=== PATIENT | female | born 1970 | race Caucasian/White ===

== ENCOUNTER 2020-09-11 07:56 | Emergency (ER) | payer SELFPAY ==
[~2020-09-11] VITALS: Ht 157.5 cm; Wt 49.9 kg
[2020-09-11 07:56] VITALS: BP 128/66
--- NOTE | 2020-09-11 07:56 | NUR ---
Patient BIBA BLS on 5150 hold, transferred to bed 5. RN evaluating the patient at bedside.
--- NOTE | 2020-09-11 07:57 | NUR ---
Dr. Barkley is evaluating the patient at bedside.
[2020-09-11] MEDS ORDERED: HALOPERIDOL IM 5 MG/ML VIAL IM SCH (08:00)
[2020-09-11] MEDS ORDERED: NACL 0.9% 2,000 ML IV ONE ×2 (08:00→08:35)
--- NOTE | 2020-09-11 08:00 | NUR ---
Vernon hodge in [facility] - 09/11/20 at 0829 by DAKOTA Patient assisted from ambulance gurney onto hospital bed. 8257 precautions initiated.
[2020-09-11] MEDS ORDERED: HALOPERIDOL IM 5 MG/ML VIAL ONE (08:08)
--- NOTE | 2020-09-11 08:12 | NUR ---
EMT at bedside for EKG
--- NOTE | 2020-09-11 08:12 | NUR ---
Lab at bedside
--- NOTE | 2020-09-11 08:13 | NUR ---
Haldol 5mg administered IM to right deltoid.
--- NOTE | 2020-09-11 08:28 | NUR ---
xray at bedside
[2020-09-11 08:32] LABS: HEMATOCRIT 35.5 % (36-48); HEMOGLOBIN 11.6 g/dL (12.0-16.0); MEAN CORPUSCULAR HEMOGLOBIN 26 pg (27-31); MEAN CORPUSCULAR HGB CONC 33 g/dL (33-37); MEAN CORPUSCULAR VOLUME 80.3 fL (80-94); PLATELET COUNT (AUTO) 320 K/uL (140-450); RED BLOOD CELL COUNT(AUTO) 4.42 MIL/uL (4.20-5.40); RED CELL DISTRIBUTION WIDTH 17.7 % (11.6-13.7); WHITE BLOOD COUNT (AUTO) 16.1 K/uL (4.8-10.8)
--- NOTE | 2020-09-11 08:33 | NUR ---
Patient unable to void at this time. Dr. Barkley made aware.
[2020-09-11 08:38] LABS: ACETAMINOPHEN < 0.5 ug/ml (10-30); ALBUMIN 3.9 g/dL (3.4-5.0); ANION GAP 14.5 (8-16); ASPARTATE AMINOTRANSFERASE 27 U/L (15-37); CHLORIDE 102 mmol/L (98-107); CREATININE 0.7 mg/dL (0.6-1.3); GFR ARICAN-AMERICAN 115 mL/min (>90); GLUCOSE 117 mg/dL (74-106); POTASSIUM 3.5 mmol/L (3.5-5.1); SALICYLATE 2.8 mg/dL (2.8-20.0); SODIUM SERUM 137 mmol/L (136-145); TOTAL BILIRUBIN 0.8 mg/dL (0.0-1.0); UREA NITROGEN, BLOOD 24 mg/dL (7-18)
--- NOTE | 2020-09-11 08:46 | NUR ---
Patient taken to CT by
[2020-09-11 08:48] LABS: LYMPHOCYTES % (MANUAL) 5 % (20-46)
--- NOTE | 2020-09-11 08:55 | NUR ---
Patient back from CT. Patient sleeping in bed, respirations even and unlabored. Bed in the lowest position, side rails up x2.
[2020-09-11 09:00] LABS: CKMB RELATIVE INDEX 2.3 (0.0-2.5); CREATINE KINASE MB 7.1 ng/mL (0-3.6)
--- NOTE | 2020-09-11 09:10 | NUR ---
Kavya and novel covid swabs collected
--- NOTE | 2020-09-11 10:20 | NUR ---
Patient sleeping in bed, respirations even and unlabored. Bed in the lowest position, side rails up x2.
--- NOTE | 2020-09-11 11:20 | NUR ---
Patient resting in bed, respirations even and unlabored. Bed locked, in the lowest position and side rails up.
--- NOTE | 2020-09-11 12:32 | NUR ---
Patient ambulated to bathroom with steady gait; urine specimen collected.
[2020-09-11 13:28] LABS: APPEARANCE,URINE CLEAR (CLEAR); BILIRUBIN,URINE NEGATIVE (NEGATIVE); BLOOD, URINE TRACE-I (NEGATIVE); COLOR,URINE YELLOW (YELLOW); LEUKOCYTE ESTERASE ,URINE NEGATIVE (NEGATIVE); NITRITE, URINE NEGATIVE (NEGATIVE); PH,URINE 5.5 (5.0-9.0); UGLUCOSE NEGATIVE (NEGATIVE)
[2020-09-11 13:37] LABS: BARBITURATE, URINE NEGATIVE ng/ml (NEG <=200); BENZODIAZEPINE, URINE NEGATIVE ng/mL (NEG <=200); CANNABINOID, URINE NEGATIVE ng/mL (NEG <=50); COCAINE, URINE NEGATIVE ng/mL (NEG <=300); OPIATE, URINE NEGATIVE ng/mL (NEG <=2000); PHENCYCLIDINE SCREEN,URINE NEGATIVE ng/mL (NEG <=25)
--- NOTE | 2020-09-11 13:55 | NUR ---
Patient resting in bed, respirations even and unlabored. Bed is in the lowest position and side rails up.
--- NOTE | 2020-09-11 14:43 | NUR ---
Patient ambulated to the restroom with a steady gait and voided x1. Patient ambulated back to bed with steady gait. Bed in the lowest position, locked and side rails up.
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
--- NOTE | 2020-09-11 14:55 | NUR ---
Patient became agitated, speaking incoherently, rambling and walked towards the door. Attempted to redirect patient but patient was not responsive to redirection. Patient was posturing and yelling, "I am not a test tube!!". Patient taken back to her room and notified Dr. Barkley of patient's behavior.
[2020-09-11] MEDS ORDERED: MIDAZOLAM 2 MG/2 ML VIAL ONE (14:57)
[2020-09-11] MEDS ORDERED: MIDAZOLAM 2 MG/2 ML VIAL IM ONE (15:00)
[2020-09-11] MEDS ORDERED: HALOPERIDOL IM 5 MG/ML VIAL IM ONE (15:40)
--- NOTE | 2020-09-11 16:26 | NUR ---
RESTRAINTS DISCONTINUED FROM EACH LIMB.
--- NOTE | 2020-09-11 18:38 | NUR ---
Patient eating dinner.
--- NOTE | 2020-09-11 19:09 | NUR ---
Report given to PATRICE Temple.
--- NOTE | 2020-09-11 19:09 | NUR ---
REPORT RECEIVED FROM PATRICE BATES FOR CONTINUATION OF CARE.
--- NOTE | 2020-09-11 19:30 | NUR ---
PT SITTING IN BED, LOCKED AND IN LOWEST POSITION, HOB ELEVATED, SIDE RAIL X 2 . NO ACUTE DISTRESS NOTED. WATER PROVIDED TO PT FOR COMFORT. SI PRECAUTIONS IN PLACE. 1:1 AT BEDSIDE.
--- NOTE | 2020-09-11 21:15 | NUR ---
Pt ambulated to restroom w/ steady gait. SI precautions in place.
--- NOTE | 2020-09-11 22:04 | NUR ---
Pt sleeping in bed, visible rise and fall of chest. Bed is locked and in lowest position, HOB elevated, side rail x 2 for pt safety. SI precautions in place. No acute distress noted.
--- NOTE | 2020-09-11 23:22 | NUR ---
PT SITTING UP IN BED, REQUESTING SOMETHING TO EAT. PT PROVIDED W/ PUDDING AND CRACKERS. SI PRECAUTIONS IN PLACE. VSS.
--- NOTE | 2020-09-11 23:27 | NUR ---
Patient intake has been faxed out to [facility]. Patient is unfunded at this time of documentation.
--- NOTE | 2020-09-12 02:14 | NUR ---
PT AMBULATED TO RESTROOM W/ STEADY GAIT.
--- NOTE | 2020-09-12 04:51 | NUR ---
Pt sleeping in room, visible rise and fall of chest. RR even and unlabored. VSS. SI precautions in place w/ sitter at bedside.. No acute distress noted.
--- NOTE | 2020-09-12 07:10 | NUR ---
REPORT GIVEN TO PATRICE PAYNE FOR TRANSFER OF CARE.
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
--- NOTE | 2020-09-12 08:30 | NUR ---
currently asleep. breakfast tray at bedside. no acute distress at this time. sitter at bedside.
--- NOTE | 2020-09-12 09:32 | NUR ---
Dr. Quinn with pt for mental health assessment.
--- NOTE | 2020-09-12 09:36 | NUR ---
ambulated to restroom for voiding. sitter at door
--- NOTE | 2020-09-12 09:39 | NUR ---
Dr. Adamsrees at bedside and released patient from hold. Pt cleared to be discharged. Dr. Barkley made aware.
--- NOTE | 2020-09-12 10:19 | NUR ---
pt d/c with VSS. [address] Quinn[address] pt provided with homeless packet, homeless meal and resources for homeless alf. opportunty to ask questions given and answered.
[2020-09-12 10:21] VITALS: BP 125/61
--- NOTE | 2020-09-13 20:01 | NUR ---
LATE ENTRY- NORMAL SALINE 0.9% DISCONTINUED AT 1000
== END 2020-09-12 10:19 | disposition home or self-care (01) ==
LOC: MED 07:56
DX: R45.851 Suicidal ideations (principal); R45.1 Restlessness and agitation; Z20.822 Contact with and (suspected) exposure to COVID-19
CPT/HCPCS: 36415; 70450; 71045; 80053; 80305; 81003; 81025; 82550; 82553; 84484; 84702; 85025; 87426; 93005; 96360; 96372; 99285; G0480; G0482; J1630; J2250; J7030; U0003

== ENCOUNTER 2020-10-28 23:37 | Emergency (ER) | payer MEDICAID, OTHER ==
[~2020-10-28] VITALS: Ht 154.9 cm; Wt 49.0 kg
[2020-10-28] MEDS ORDERED: OLANZapine 10 MG VIAL IM ONE ×2 (23:44→23:50)
[2020-10-28] MEDS ORDERED: LORazepam 2 MG/ML VIAL IVP ONE (23:50)
--- NOTE | 2020-10-28 23:53 | NUR ---
PT RICARDO ALS. TAKEN TO BED 5
[2020-10-29] MEDS ORDERED: NACL 0.9% 2,000 ML IV ONE
--- NOTE | 2020-10-29 | NUR ---
RICARDO FROM [address] FOR ALTERED MENTAL STATUS. HYPERVERBAL AND UNWILLING TO ANSWER QUESTIONS DIRECTLY. HEART RATE INCREASED BUT PT DOES NOT SHOW SIGNS OF CHEST DISCOMFORT. PATIENT AGITATED. MEDHX- UNOBTAINABLE ALLX- UNOBTAINABLE
--- NOTE | 2020-10-29 01:00 | NUR ---
Patient appears to be resting comfortably in bed. Vital Signs within normal limits. Respirations even and unlabored. no acute distress noted.
--- NOTE | 2020-10-29 02:33 | NUR ---
Patient appears to be resting comfortably in bed. Vital Signs within normal limits. Respirations even and unlabored. no acute distress noted.
--- NOTE | 2020-10-29 03:42 | NUR ---
Patient appears to be resting comfortably in bed. Vital Signs within normal limits. Respirations even and unlabored. no acute distress noted at this time
--- NOTE | 2020-10-29 04:53 | NUR ---
Patient appears to be resting comfortably in bed. Vital Signs within normal limits. Respirations even and unlabored.
--- NOTE | 2020-10-29 06:20 | NUR ---
ERMD attempted to awaken patient to receive proper examination but patient continued on sleeping. no signs of acute distress for patient.
--- NOTE | 2020-10-29 07:03 | NUR ---
Note undone in EDM - 10/29/20 at 0712 by [email or web address] Patient discharged with v/s stable. Pt states pain feels controlled; pain at a 3/10. Written and verbal after care instructions given and explained. Patient alert, oriented and verbalized understanding of instructions. Ambulatory with steady gait. All questions addressed prior to discharge. ID band removed. Patient advised to follow up with PMD. Rx of NAPROXEN, MACROBID 100MG CAP, & PYRIDIUM given. Patient educated on indication of medication including possible reaction and side effects. Opportunity to ask questions provided and answered.
--- NOTE | 2020-10-29 07:11 | NUR ---
Received report from Nabor Walden. Transfer of care at this time.
--- NOTE | 2020-10-29 08:26 | NUR ---
Pt changed into clean clothes, sheets changed. Gave breakfast tray pt sitting up calm and cooperative. Will continue to monitor.
--- NOTE | 2020-10-29 08:45 | NUR ---
Pt sleeping on left side, visible equal rise and fall of chest. Will continue to monitor.
[2020-10-29 10:52] VITALS: BP 105/70
--- NOTE | 2020-10-29 10:52 | NUR ---
Patient discharged with v/s stable. Written and verbal after care instructions given and explained. Patient verbalized understanding. Ambulatory with steady gait. All questions addressed prior to discharge. Advised to follow up with PMD.
== END 2020-10-28 23:59 | disposition home or self-care (01) ==
LOC: MED 23:37
DX: F29 Unspecified psychosis not due to a substance or known physiological condition (principal); R45.1 Restlessness and agitation; F31.9 Bipolar disorder, unspecified
CPT/HCPCS: 96361; 96372; 96374; 99284; J2060; J3490; J7030

== ENCOUNTER 2020-10-29 12:31 | Emergency (ER) | payer MEDICAID ==
[~2020-10-29] VITALS: Ht 152.4 cm; Wt 46.7 kg
[2020-10-29 12:33] VITALS: BP 112/80
[2020-10-29 13:10] LABS: BASOPHILS # (AUTO) 0.1 K/uL (0.00-0.22); BASOPHILS % (AUTO) 0.8 % (0.0-2.0); EOSINOPHILS # (AUTO) 0.7 K/uL (0-0.4); EOSINOPHILS % (AUTO) 8.2 % (0.0-4.0); HEMATOCRIT 33.8 % (36-48); HEMOGLOBIN 11.3 g/dL (12.0-16.0); LYMPHOCYTES # (AUTO) 2.2 K/uL (2.5-16.5); LYMPHOCYTES % (AUTO) 24.7 % (20.5-51.1); MEAN CORPUSCULAR HEMOGLOBIN 27 pg (27-31); MEAN CORPUSCULAR HGB CONC 33 g/dL (33-37); MEAN CORPUSCULAR VOLUME 81.6 fL (80-94); MONOCYTES # (AUTO) 1.1 K/uL (0.8-1.0); MONOCYTES % (AUTO) 12.7 % (1.7-9.3); NEUTROPHILS # (AUTO) 4.8 K/uL (1.8-7.7); NEUTROPHILS % (AUTO) 53.6 % (42.2-75.2); PLATELET COUNT (AUTO) 259 K/uL (140-450); RED BLOOD CELL COUNT(AUTO) 4.14 MIL/uL (4.20-5.40); RED CELL DISTRIBUTION WIDTH 17.4 % (11.6-13.7); WHITE BLOOD COUNT (AUTO) 8.9 K/uL (4.8-10.8)
[2020-10-29 13:25] LABS: ALBUMIN 3.1 g/dL (3.4-5.0); ANION GAP 12.7 (8-16); ASPARTATE AMINOTRANSFERASE 17 U/L (15-37); CARBON DIOXIDE 24.2 mmol/L (21-32); CHLORIDE 106 mmol/L (98-107); CREATININE 0.6 mg/dL (0.6-1.3); GFR ARICAN-AMERICAN 137 mL/min (>90); GLUCOSE 91 mg/dL (74-106); POTASSIUM 3.9 mmol/L (3.5-5.1); SODIUM SERUM 139 mmol/L (136-145); TOTAL BILIRUBIN 0.3 mg/dL (0.0-1.0); UREA NITROGEN, BLOOD 19 mg/dL (7-18)
[2020-10-29 13:27] LABS: SALICYLATE < 2.8 mg/dL (2.8-20.0)
[2020-10-29 13:28] LABS: ACETAMINOPHEN < 0.5 ug/ml (10-30)
[2020-10-29 13:42] LABS: BARBITURATE, URINE NEGATIVE ng/ml (NEG <=200); BENZODIAZEPINE, URINE POSITIVE ng/mL (NEG <=200)
[2020-10-29 13:43] LABS: CANNABINOID, URINE POSITIVE ng/mL (NEG <=50); COCAINE, URINE NEGATIVE ng/mL (NEG <=300); OPIATE, URINE NEGATIVE ng/mL (NEG <=2000); PHENCYCLIDINE SCREEN,URINE NEGATIVE ng/mL (NEG <=25)
[2020-10-29] MEDS: OLANZapine 5 MG ODT PO SCH ×2 (21:25→21:26)
[2020-10-30] MEDS ORDERED: OLANZapine 5 MG ODT PO SCH (08:30)
[2020-10-30 08:35] VITALS: BP 123/76
== END 2020-10-30 08:35 | disposition home or self-care (01) ==
LOC: MED 12:31
DX: F32.9 Major depressive disorder, single episode, unspecified (principal); Z20.822 Contact with and (suspected) exposure to COVID-19; R44.3 Hallucinations, unspecified; F19.90 Other psychoactive substance use, unspecified, uncomplicated; Z59.0 Homelessness
CPT/HCPCS: 36415; 80053; 80305; 85025; 87426; 99285; G0480; G0482; U0003

== ENCOUNTER 2020-11-07 14:36 | Emergency (ER) | payer MEDICAID ==
[~2020-11-07] VITALS: Ht 152.4 cm; Wt 40.8 kg
[2020-11-07 14:40] VITALS: BP 128/107
[2020-11-07] MEDS ORDERED: ZIPRASIDONE MESYLATE 20 MG/ML VIAL IM ONE (14:40)
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
--- NOTE | 2020-11-07 15:26 | NUR ---
JOSE MARIA AND NOVEL SWABS COLLECTED, HANDED TO PRAMOD SOTO
--- NOTE | 2020-11-07 15:39 | NUR ---
LAB AT BEDSIDE
[2020-11-07 15:57] LABS: BASOPHILS # (AUTO) 0.1 K/uL (0.00-0.22); BASOPHILS % (AUTO) 0.9 % (0.0-2.0); EOSINOPHILS # (AUTO) 0.4 K/uL (0-0.4); EOSINOPHILS % (AUTO) 4.4 % (0.0-4.0); HEMATOCRIT 36.4 % (36-48); HEMOGLOBIN 12.1 g/dL (12.0-16.0); LYMPHOCYTES # (AUTO) 2.5 K/uL (2.5-16.5); LYMPHOCYTES % (AUTO) 24.9 % (20.5-51.1); MEAN CORPUSCULAR HEMOGLOBIN 27 pg (27-31); MEAN CORPUSCULAR HGB CONC 33 g/dL (33-37); MEAN CORPUSCULAR VOLUME 80.5 fL (80-94); MONOCYTES # (AUTO) 0.7 K/uL (0.8-1.0); MONOCYTES % (AUTO) 6.8 % (1.7-9.3); NEUTROPHILS # (AUTO) 6.3 K/uL (1.8-7.7); PLATELET COUNT (AUTO) 328 K/uL (140-450); RED BLOOD CELL COUNT(AUTO) 4.53 MIL/uL (4.20-5.40); RED CELL DISTRIBUTION WIDTH 16.6 % (11.6-13.7)
[2020-11-07 16:35] LABS: BARBITURATE, URINE NEGATIVE ng/ml (NEG <=200); BENZODIAZEPINE, URINE NEGATIVE ng/mL (NEG <=200); CANNABINOID, URINE NEGATIVE ng/mL (NEG <=50); COCAINE, URINE NEGATIVE ng/mL (NEG <=300); OPIATE, URINE NEGATIVE ng/mL (NEG <=2000); PHENCYCLIDINE SCREEN,URINE NEGATIVE ng/mL (NEG <=25)
--- NOTE | 2020-11-07 17:02 | NUR ---
Patient has eyes closed, resting comfortably in bed. Vital Signs within normal limits. Respirations even and unlabored. Chest rise is symmetrical. Will continue to monitor.
[2020-11-07 18:34] LABS: ANION GAP 15.5 (8-16); CARBON DIOXIDE 24.9 mmol/L (21-32); CHLORIDE 106 mmol/L (98-107); GLUCOSE 111 mg/dL (74-106); POTASSIUM 3.4 mmol/L (3.5-5.1); SODIUM SERUM 143 mmol/L (136-145)
[2020-11-07 18:35] LABS: ACETAMINOPHEN < 0.5 ug/ml (10-30); ALBUMIN 3.8 g/dL (3.4-5.0); ASPARTATE AMINOTRANSFERASE 20 U/L (15-37); CREATININE 0.7 mg/dL (0.6-1.3); GFR ARICAN-AMERICAN 115 mL/min (>90); SALICYLATE 2.9 mg/dL (2.8-20.0); TOTAL BILIRUBIN 0.3 mg/dL (0.0-1.0); UREA NITROGEN, BLOOD 24 mg/dL (7-18)
--- NOTE | 2020-11-07 19:15 | NUR ---
Pt report given to SANTIAGO IBRAHIM. Transfer of care at this time.
--- NOTE | 2020-11-07 19:15 | NUR ---
REPORT RECIEVED FROM PATRICE JANE FOR CONTINUITY OF CARE.
--- NOTE | 2020-11-07 19:20 | NUR ---
Patient appears to be resting comfortably in bed. Vital Signs within normal limits. Respirations even and unlabored. NO NOTED DISTRESS AT THIS TIME.
[2020-11-07 19:51] LABS: APPEARANCE,URINE CLEAR (CLEAR); BILIRUBIN,URINE NEGATIVE (NEGATIVE); BLOOD, URINE NEGATIVE (NEGATIVE); COLOR,URINE YELLOW (YELLOW); LEUKOCYTE ESTERASE ,URINE NEGATIVE (NEGATIVE); NITRITE, URINE NEGATIVE (NEGATIVE); PH,URINE 5.5 (5.0-9.0); UGLUCOSE NEGATIVE (NEGATIVE)
--- NOTE | 2020-11-07 21:25 | NUR ---
SPOKE WITH LEONCIO AT [facility]. SHE STATES SHE WILL BE GETTING AUTHORIZATION.
--- NOTE | 2020-11-07 21:30 | NUR ---
Patient appears to be resting comfortably in bed. Vital Signs within normal limits. Respirations even and unlabored. NO DISTRESS OR PAIN NOTED AT THIS TIME.
--- NOTE | 2020-11-07 22:06 | NUR ---
SPOKE WITH LEONCIO AT [facility]. REPORTS PT IS BEING ADMITTED AND WILL CALL BACK WITH ADMITTING DOCTOR.
--- NOTE | 2020-11-07 22:10 | NUR ---
PER LEONCIO AT [facility], [facility] WILL BE ACCEPTING PT. Addendum: 11/07/20 at 2218 by [email or web address] LEONCIO PHONE #: [phone]
--- NOTE | 2020-11-07 22:10 | NUR ---
Patient to be transferred to [facility]. Is being transferred due to NEED FOR OTHER SERVICES NOT PROVIDED BY OUR FACILITY. Receiving facility has accepting physician and available space. ER physician has signed transfer form. Patient belongings inventoried and will be sent with patient. Copy of nursing notes, lab reports, EKG, Physicians Orders and X-rays to be sent with patient. Report called to LEONCIO at receiving facility. [facility] ambulance service has been called for transfer. ETA is 2 HOURS.
--- NOTE | 2020-11-07 22:30 | NUR ---
PT TRANSPORTATION ETA 2 HOURS.
--- NOTE | 2020-11-07 23:05 | NUR ---
[facility] AT BEDSIDE
[2020-11-07 23:13] VITALS: BP 121/72
--- NOTE | 2020-11-07 23:13 | NUR ---
PT TAKEN BY EMILIO TO [facility]
== END 2020-11-07 23:13 ==
LOC: MED 14:36
DX: R41.82 Altered mental status, unspecified (principal); Z20.822 Contact with and (suspected) exposure to COVID-19; F15.10 Other stimulant abuse, uncomplicated; F29 Unspecified psychosis not due to a substance or known physiological condition; R45.851 Suicidal ideations
CPT/HCPCS: 36415; 80053; 80305; 81003; 81025; 84484; 85025; 87426; 96372; 99285; G0480; G0482; J3486; U0003; 99283

== ENCOUNTER 2020-12-10 16:34 | Emergency (ER) | payer MEDICAID ==
[~2020-12-10] VITALS: Ht 154.9 cm; Wt 52.6 kg
[2020-12-10 16:47] VITALS: BP 134/95
--- NOTE | 2020-12-10 16:50 | NUR ---
PT ASKED TO WAIT IN LOBBY.
--- NOTE | 2020-12-10 17:37 | NUR ---
PT CALLED IN LOBBY, NO RESPONSE.
--- NOTE | 2020-12-10 17:53 | NUR ---
ANOTHER ATTEMPT TO CALL PT BACK. NO RESPONSE.
--- NOTE | 2020-12-10 17:53 | NUR ---
PATIENT LEFT WITHOUT BEING SEEN BY DR. JUSTIN. NO FURTHER CARE PROVIDED FOR PATIENT.
== END 2020-12-10 17:53 | disposition left against medical advice (07) ==
LOC: MED 16:34
DX: R06.00 Dyspnea, unspecified (principal); R05 Cough

== ENCOUNTER 2020-12-14 18:30 | Emergency (ER) | payer MEDICAID ==
[~2020-12-14] VITALS: Ht 162.6 cm; Wt 59.0 kg
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
[2020-12-14 18:39] VITALS: BP 138/77
[2020-12-14] MEDS ORDERED: ALBU0.0912 INH (18:40)
[2020-12-14] MEDS ORDERED: ALBUTEROL HFA MDI 90 MCG/ACTUATION 8 GM INH ONE (18:40)
--- NOTE | 2020-12-14 18:45 | NUR ---
RT AT BEDSIDE WITH ALBUTEROL TREATMENT
[2020-12-14 19:20] VITALS: BP 138/77
--- NOTE | 2020-12-14 19:20 | NUR ---
Patient discharged with v/s stable. Written and verbal after care instructions about shortness of breathe given and explained. Patient alert, oriented and verbalized understanding of instructions. Ambulatory with steady gait. All questions addressed prior to discharge. ID band removed. Patient advised to follow up with PMD. Rx of albuterol sulfate given. Patient educated on indication of medication including possible reaction and side effects. Opportunity to ask questions provided and answered.
== END 2020-12-14 19:20 | disposition home or self-care (01) ==
LOC: MED 18:30
DX: R06.02 Shortness of breath (principal); F15.10 Other stimulant abuse, uncomplicated; J44.9 Chronic obstructive pulmonary disease, unspecified; F17.290 Nicotine dependence, other tobacco product, uncomplicated; Z76.0 Encounter for issue of repeat prescription
CPT/HCPCS: 94664; 99283

== ENCOUNTER 2021-01-16 19:23 | Emergency (ER) | payer MEDICAID ==
[~2021-01-16] VITALS: Ht 152.4 cm; Wt 59.0 kg
[2021-01-16 19:23] VITALS: BP 121/89
[~2021-01-16 19:23] MED LIST: ALBU0.0912 INH
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
--- NOTE | 2021-01-16 19:30 | NUR ---
Dr. Sneed examining patient.
[2021-01-16] MEDS ORDERED: LORazepam 2 MG/ML VIAL IM ONE (19:35)
[2021-01-16] MEDS ORDERED: HALOPERIDOL IM 5 MG/ML VIAL IM ONE (19:35)
[2021-01-16] MEDS ORDERED: NACL 0.9% 1,000 ML IV ONE (19:40)
--- NOTE | 2021-01-16 21:50 | NUR ---
LAB AT BEDSIDE
[2021-01-16 22:20] LABS: BASOPHILS % (AUTO) 0.5 % (0.0-2.0); EOSINOPHILS # (AUTO) 0.2 K/uL (0-0.4); EOSINOPHILS % (AUTO) 1.9 % (0.0-4.0); LYMPHOCYTES # (AUTO) 1.1 K/uL (2.5-16.5); LYMPHOCYTES % (AUTO) 14.2 % (20.5-51.1); MEAN CORPUSCULAR HEMOGLOBIN 28 pg (27-31); MEAN CORPUSCULAR HGB CONC 33 g/dL (33-37); MEAN CORPUSCULAR VOLUME 82.5 fL (80-94); MONOCYTES # (AUTO) 0.9 K/uL (0.8-1.0); MONOCYTES % (AUTO) 11.6 % (1.7-9.3); NEUTROPHILS # (AUTO) 5.8 K/uL (1.8-7.7); NEUTROPHILS % (AUTO) 71.8 % (42.2-75.2); PLATELET COUNT (AUTO) 236 K/uL (140-450); RED BLOOD CELL COUNT(AUTO) 4.37 MIL/uL (4.20-5.40); RED CELL DISTRIBUTION WIDTH 16.7 % (11.6-13.7)
[2021-01-16 23:08] LABS: ALBUMIN 3.8 g/dL (3.4-5.0); ANION GAP 15.5 (8-16); ASPARTATE AMINOTRANSFERASE 20 U/L (15-37); CARBON DIOXIDE 24.5 mmol/L (21-32); CHLORIDE 109 mmol/L (98-107); GFR ARICAN-AMERICAN 76 mL/min (>90); GLUCOSE 109 mg/dL (74-106); SALICYLATE 4.9 mg/dL (2.8-20.0); SODIUM SERUM 146 mmol/L (136-145); TOTAL BILIRUBIN 0.3 mg/dL (0.0-1.0); UREA NITROGEN, BLOOD 22 mg/dL (7-18)
--- NOTE | 2021-01-17 00:45 | NUR ---
PT. LAYING IN POSITION RESTING WITH EYES CLOSED, VOICES NO COMPLAINTS.
--- NOTE | 2021-01-17 01:30 | NUR ---
DELAY IN URINE COLLECTION, PT. UNABLE TO GIVE AT THIS TIME. PT. LAYING IN POSITION RESTING WITH EYES CLOSED.
--- NOTE | 2021-01-17 03:45 | NUR ---
PT. LAYING IN POSITION WITH EYES CLOSED. AUDIBLE SNORING SOUNDS CAN BE HEARD.
--- NOTE | 2021-01-17 07:24 | NUR ---
[facility]on hodge in [facility] - 01/17/21 at 0723 by LIS REPORT RECEIVED FROM SIMON IBRAHIM, TRANSFER OF CARE AT THIS TIME
--- NOTE | 2021-01-17 07:25 | NUR ---
REPORT GIVEN TO PATRICE LUNA. TRANSFER OF CARE AT THIS TIME.
--- NOTE | 2021-01-17 07:25 | NUR ---
REPORT RECEIVED FROM SIMON RN, TRANSFER OF CARE AT THIS TIME
--- NOTE | 2021-01-17 07:44 | NUR ---
PT RESTING WITH EYES CLOSED, BREATHING EVEN AND UNLABORED. NO DISTRESS NOTED.
[2021-01-17 09:05] LABS: BARBITURATE, URINE NEGATIVE ng/ml (NEG <=200); BENZODIAZEPINE, URINE POSITIVE ng/mL (NEG <=200); CANNABINOID, URINE NEGATIVE ng/mL (NEG <=50); COCAINE, URINE NEGATIVE ng/mL (NEG <=300); OPIATE, URINE NEGATIVE ng/mL (NEG <=2000); PHENCYCLIDINE SCREEN,URINE NEGATIVE ng/mL (NEG <=25)
--- NOTE | 2021-01-17 10:00 | NUR ---
PT ALERT AND AWAKE, BREATHING EVEN AND UNLABORED. PT ATE BREAKFAST TRAY 100%, STATES THAT SHE WANTS HELP WITH SITUATION OF LIVING ON STREETS.
--- NOTE | 2021-01-17 11:09 | NUR ---
PT IS ON PHONE WITH [facility] AT THIS TIME
--- NOTE | 2021-01-17 11:31 | NUR ---
PER MIRIAM FROM [employer] - WILL BE TAKING PT OFF OF HOLD, ANNAMARIE MADE AWARE - RECOMMENDS ALF RESOURCES.
[2021-01-17] MEDS ORDERED: RIS1 PO (12:05)
--- NOTE | 2021-01-17 12:10 | NUR ---
PT GIVEN CHANGE OF CLOTHES/SHOES THAT ARE APPROPRIATE FOR WEATHER AND HAS EATEN LUNCH AT THIS TIME
[2021-01-17 12:20] VITALS: BP 108/89
--- NOTE | 2021-01-17 12:20 | NUR ---
Patient discharged with v/s stable. Written and verbal after care instructions about bipolar 1 disorder given and explained. Patient alert, oriented and verbalized understanding of instructions. Ambulatory with steady gait. All questions addressed prior to discharge. ID band removed. Patient advised to follow up with PMD. Rx of resperidone given. Patient educated on indication of medication including possible reaction and side effects. Opportunity to ask questions provided and answered.
--- NOTE | 2021-01-17 12:20 | NUR ---
Patient given written and verbal discharge instructions and verbalizes understanding. Given copies of tests performed during visit. Patient is awake, alert and oriented. Ambulatory with steady gait. Refuses offer of care home placement. Given list of available shelters in surrounding areas.
--- NOTE | 2021-01-18 19:33 | NUR ---
LATE ENTRY- 0.9% NS IVF DISCONTINUED AT 2150
== END 2021-01-17 12:20 | disposition home or self-care (01) ==
LOC: MED 19:23
DX: F29 Unspecified psychosis not due to a substance or known physiological condition (principal); J44.9 Chronic obstructive pulmonary disease, unspecified; F17.200 Nicotine dependence, unspecified, uncomplicated; F15.90 Other stimulant use, unspecified, uncomplicated; Z79.899 Other long term (current) drug therapy
CPT/HCPCS: 36415; 80053; 80305; 85025; 96360; 96372; 99284; G0480; G0482; J1630; J2060; J7030; 96361

== ENCOUNTER 2021-03-01 22:35 | Emergency (ER) | payer MEDICAID ==
[~2021-03-01 22:35] MED LIST changes: +RIS1 PO
--- NOTE | 2021-03-01 23:00 | NUR ---
PATIENT CALLED FOR TRIAGE. PATIENT NOT IN LOBBY AND OUTSIDE.
--- NOTE | 2021-03-01 23:20 | NUR ---
PATIENT CALLED FOR TRIAGE. PATIENT NOT IN LOBBY AND OUTSIDE.
--- NOTE | 2021-03-01 23:40 | NUR ---
PATIENT CALLED FOR TRIAGE. PATIENT NOT IN LOBBY AND OUTSIDE.
--- NOTE | 2021-03-01 23:45 | NUR ---
PATIENT LEFT WITHOUT BEING SEEN. NO FURTHER CARE PROVIDED FOR PATIENT.
== END 2021-03-01 23:40 | disposition left against medical advice (07) ==
LOC: MED 22:35
DX: Z53.21 Procedure and treatment not carried out due to patient leaving prior to being seen by health care provider (principal)

== ENCOUNTER 2021-03-02 02:10 | Emergency (ER) | payer MEDICAID ==
[~2021-03-02] VITALS: Ht 152.4 cm; Wt 54.4 kg
[2021-03-02 02:54] VITALS: BP 145/76
--- NOTE | 2021-03-02 02:56 | NUR ---
TO [facility] AMBULATORY
--- NOTE | 2021-03-02 03:01 | NUR ---
PATIENT LEFT WITHOUT BEING SEEN BY DR. SABA. NO FURTHER CARE PROVIDED FOR PATIENT.SHE DOESNT WANT TO WAIT FOR THE ERMD
--- NOTE | 2021-03-02 03:03 | NUR ---
PATIENT IN CHAIR B ACTING AGGRESSIVE, YELLING OUT PROFANITIES.
== END 2021-03-02 03:04 | disposition left against medical advice (07) ==
LOC: MED 02:10
DX: H92.03 Otalgia, bilateral (principal); Z53.21 Procedure and treatment not carried out due to patient leaving prior to being seen by health care provider

== ENCOUNTER 2022-03-24 05:20 | Emergency (ER) | payer MEDICAID ==
[~2022-03-24] VITALS: Ht 157.5 cm; Wt 63.5 kg
--- NOTE | 2022-03-24 05:28 | NUR ---
Dr. Chicas examining at [facility].
[2022-03-24 05:29] VITALS: BP 114/102
[2022-03-24] MEDS ORDERED: diphenhydrAMINE 50 MG/ML VIAL IM ONE (05:30)
[2022-03-24] MEDS ORDERED: LORazepam 2 MG/ML VIAL IM ONE (05:30)
[2022-03-24] MEDS ORDERED: HALOPERIDOL IM 5 MG/ML VIAL IM ONE (05:30)
[2022-03-24] MEDS ORDERED: LORazepam 2 MG/ML VIAL IM/IVP STA (05:51)
--- NOTE | 2022-03-24 06:00 | NUR ---
Pt resting in bed, eyes closed, NAD. Restraints removed.
--- NOTE | 2022-03-24 06:07 | NUR ---
PER [facility] CELESTINO STRAIGHT CATH IS NOT NECESSARY FOR URINE COLLECTION.
--- NOTE | 2022-03-24 06:13 | NUR ---
BLOOD COLLECTED AND GIVEN TO LAB.
[2022-03-24 06:35] LABS: BASOPHILS # (AUTO) 0.1 K/uL (0.00-0.22); BASOPHILS % (AUTO) 0.5 % (0.0-2.0); EOSINOPHILS # (AUTO) 0.2 K/uL (0-0.4); HEMATOCRIT 35.3 % (36-48); HEMOGLOBIN 11.5 g/dL (12.0-16.0); LYMPHOCYTES # (AUTO) 2.7 K/uL (2.5-16.5); MEAN CORPUSCULAR HEMOGLOBIN 27 pg (27-31); MEAN CORPUSCULAR HGB CONC 33 g/dL (33-37); MEAN CORPUSCULAR VOLUME 82.7 fL (80-94); MONOCYTES # (AUTO) 0.8 K/uL (0.8-1.0); NEUTROPHILS # (AUTO) 7.8 K/uL (1.8-7.7); NEUTROPHILS % (AUTO) 67.5 % (42.2-75.2); PLATELET COUNT (AUTO) 241 K/uL (140-450); RED BLOOD CELL COUNT(AUTO) 4.26 MIL/uL (4.20-5.40); RED CELL DISTRIBUTION WIDTH 15.1 % (11.6-13.7); WHITE BLOOD COUNT (AUTO) 11.6 K/uL (4.8-10.8)
[2022-03-24 06:53] LABS: ALBUMIN 3.3 g/dL (3.4-5.0); ANION GAP 13.6 (8-16); ASPARTATE AMINOTRANSFERASE 19 U/L (15-37); CARBON DIOXIDE 25.5 mmol/L (21-32); CHLORIDE 103 mmol/L (98-107); CREATININE 0.6 mg/dL (0.6-1.3); GFR ARICAN-AMERICAN 136 mL/min (>90); GLUCOSE 125 mg/dL (74-106); POTASSIUM 3.1 mmol/L (3.5-5.1); SODIUM SERUM 139 mmol/L (136-145); TOTAL BILIRUBIN 0.2 mg/dL (0.0-1.0); UREA NITROGEN, BLOOD 19 mg/dL (7-18)
[2022-03-24 06:56] LABS: ACETAMINOPHEN < 0.5 ug/ml (10-30); SALICYLATE < 2.8 mg/dL (2.8-20.0)
[2022-03-24 07:19] LABS: CKMB RELATIVE INDEX 2.5 (0.0-2.5)
--- NOTE | 2022-03-24 08:42 | NUR ---
Patient appears to be resting comfortably in bed. Vital Signs within normal limits. Respirations even and unlabored.
[2022-03-24 12:42] VITALS: BP 110/92
== END 2022-03-24 12:43 | disposition home or self-care (01) ==
LOC: MED 05:20
DX: F23 Brief psychotic disorder (principal); R45.1 Restlessness and agitation; F15.10 Other stimulant abuse, uncomplicated
CPT/HCPCS: 36415; 71045; 71250; 80053; 82550; 82553; 84484; 85025; 93005; 96372; 99291; G0480; G0482; J1200; J1630; J2060; Q0092

== ENCOUNTER 2022-08-25 08:39 | Emergency (ER) | payer MEDICAID ==
[~2022-08-25] VITALS: Ht 157.5 cm; Wt 54.4 kg
[2022-08-25 08:45] VITALS: BP 152/103
--- NOTE | 2022-08-25 11:02 | NUR ---
PT EATING AYANA CRACKERS AT THIS TIME
--- NOTE | 2022-08-25 12:50 | NUR ---
52 Y/O FEMALE BIBA FROM [employer] C/O "FEELING COLD", PER EMS THE INSTALLATIONS INSPECTOR AT THE [employer] STATED THAT THE PT WAS "UNRESPONSIVE", PER EMS PT IS RESPONSIVE, SCREAMING AT EMS. PT CRYING AND WANTING A BLANKET, SCREAMING IN TRIAGE DURING VS. AMBULATORY. NKA PMH: UNOBTAINABLE, METH USE
[2022-08-25 13:10] VITALS: BP 135/83
--- NOTE | 2022-08-25 13:11 | NUR ---
Patient discharged with v/s stable. Written and verbal after care instructions given and explained. Patient verbalized understanding. Ambulatory with steady gait. All questions addressed prior to discharge. Advised to follow up with PMD. PT GIVEN BAG OF FOOD, REFUSING SERVICES FOR TRANSPORT, SAYING THAT SHE WANTS TO STAY IN THE LOBBY
== END 2022-08-25 13:11 | disposition home or self-care (01) ==
LOC: MED 08:39
DX: F15.10 Other stimulant abuse, uncomplicated (principal); J44.9 Chronic obstructive pulmonary disease, unspecified; Z79.899 Other long term (current) drug therapy
CPT/HCPCS: 99283

== ENCOUNTER 2022-10-18 13:42 | Emergency (ER) | payer MEDICAID ==
[~2022-10-18] VITALS: Ht 157.5 cm; Wt 65.8 kg
[2022-10-18] MEDS ORDERED: HALOPERIDOL IM 5 MG/ML VIAL IM ONE (14:05)
[2022-10-18] MEDS ORDERED: LORazepam 2 MG/ML VIAL IM ONE (14:40)
[2022-10-18] MEDS ORDERED: diphenhydrAMINE 50 MG/ML VIAL IM ONE (14:40)
[2022-10-18 15:00] VITALS: BP 112/72
--- NOTE | 2022-10-18 15:12 | NUR ---
BIBA BLS TO ER BED 10
--- NOTE | 2022-10-18 15:15 | NUR ---
PT. PLACED IN HARD RESTRAINS FOR SAFETY. IS VERY AGITED, YELLING, SCREAMING, OUT OF CONTROL. MD AT BEDSIDE TO EVAL PT. NO SOB, NO RESP. DIFFICULTY ALL MEASURES ATTEMPTED TO CALM PT. DOWN AND HELP HER REGAIN CONTROL. PT. IS YELLING OUT OF CONTROL AND UNABLE TO CONTROL HER BEHAVIOR.
[2022-10-18 16:23] LABS: BASOPHILS # (AUTO) 0.1 K/uL (0.00-0.22); BASOPHILS % (AUTO) 0.6 % (0.0-2.0); EOSINOPHILS % (AUTO) 0.3 % (0.0-4.0); HEMATOCRIT 34.8 % (36-48); HEMOGLOBIN 11.2 g/dL (12.0-16.0); LYMPHOCYTES # (AUTO) 2.4 K/uL (2.5-16.5); LYMPHOCYTES % (AUTO) 18.3 % (20.5-51.1); MEAN CORPUSCULAR HEMOGLOBIN 26 pg (27-31); MEAN CORPUSCULAR HGB CONC 32 g/dL (33-37); MEAN CORPUSCULAR VOLUME 80.4 fL (80-94); MONOCYTES # (AUTO) 1.8 K/uL (0.8-1.0); MONOCYTES % (AUTO) 13.6 % (1.7-9.3); NEUTROPHILS # (AUTO) 8.8 K/uL (1.8-7.7); NEUTROPHILS % (AUTO) 67.2 % (42.2-75.2); PLATELET COUNT (AUTO) 237 K/uL (140-450); RED BLOOD CELL COUNT(AUTO) 4.33 MIL/uL (4.20-5.40); RED CELL DISTRIBUTION WIDTH 18.2 % (11.6-13.7)
[2022-10-18 16:43] LABS: ALBUMIN 3.8 g/dL (3.4-5.0); ANION GAP 12.8 (8-16); ASPARTATE AMINOTRANSFERASE 31 U/L (15-37); CARBON DIOXIDE 25.1 mmol/L (21-32); CHLORIDE 103 mmol/L (98-107); CREATININE 0.7 mg/dL (0.6-1.3); GFR ARICAN-AMERICAN 114 mL/min (>90); GLUCOSE 50 mg/dL (74-106); SODIUM SERUM 138 mmol/L (136-145); TOTAL BILIRUBIN 0.8 mg/dL (0.0-1.0); UREA NITROGEN, BLOOD 23 mg/dL (7-18)
[2022-10-18 16:45] LABS: ACETAMINOPHEN < 0.5 ug/ml (10-30); POTASSIUM 2.9 mmol/L (3.5-5.1); SALICYLATE < 2.8 mg/dL (2.8-20.0)
[2022-10-18] MEDS ORDERED: DEXT 5% / NACL 0.9% 1,000 ML IV ONE (16:45)
[2022-10-18] MEDS ORDERED: KCL 20 MEQ IN 100 mL PREMIX 200 ML IV ONE (16:45)
[2022-10-18] MEDS ORDERED: DEXTROSE 50% 50 ML SYR IVP ONE ×2 (17:09→18:30)
--- NOTE | 2022-10-18 17:15 | NUR ---
PT. IS CALM AND APPEAR SEDATED, PT. TAKEN TO CT SCAN WITH THIS RN AT BEDSIDE AT ALL TIMES. PT. REMOVED FROM RETRAINS. PT. IS NOT AGITATED BY APPEARS TO BE RESTING QUIETLY. ALL RESTRAINS REMOVED WITH PT.'S SKIN INTACT, PT. DID NOT SUFFER ANY INJURY FROM RESTRAINS BEING USED.
[2022-10-18] MEDS ORDERED: LORazepam 2 MG/ML VIAL IVP ONE (17:20)
[2022-10-18] MEDS ORDERED: LORazepam 2 MG/ML VIAL ONE (17:22)
[2022-10-18] MEDS ORDERED: NACL 0.9% 1,000 ML IV ONE (18:35)
--- NOTE | 2022-10-18 19:00 | NUR ---
PT. APPEARS SEDATED. NO ACUTE DISTRESS. PT. OFF RESTRAINS. PT. SAFETY MAINTAINED. NO SOB. REPORT GIVEN TO INCOMING SHIFT
--- NOTE | 2022-10-18 19:25 | NUR ---
# 16 FR Urinary catheter inserted utilizing sterile technique. Immediate return of 5 ml yellow, clear like, and without odor urine noted. Urine sample collected and sent to lab. Pt tolerated procedure well.
[2022-10-18 19:39] LABS: BILIRUBIN,URINE NEGATIVE (NEGATIVE); BLOOD, URINE NEGATIVE (NEGATIVE); COLOR,URINE YELLOW (YELLOW); LEUKOCYTE ESTERASE ,URINE TRACE (NEGATIVE); NITRITE, URINE NEGATIVE (NEGATIVE); UGLUCOSE TRACE (NEGATIVE)
[2022-10-18 19:44] LABS: APPEARANCE,URINE HAZY (CLEAR)
[2022-10-18 19:58] LABS: BARBITURATE, URINE NEGATIVE ng/ml (NEG <=200); BENZODIAZEPINE, URINE POSITIVE ng/mL (NEG <=200)
[2022-10-18 19:59] LABS: CANNABINOID, URINE NEGATIVE ng/mL (NEG <=50); COCAINE, URINE NEGATIVE ng/mL (NEG <=300); OPIATE, URINE NEGATIVE ng/mL (NEG <=2000); PHENCYCLIDINE SCREEN,URINE NEGATIVE ng/mL (NEG <=25)
[2022-10-18 20:02] LABS: RBC,URINE NONE SEEN /HPF (0-5)
--- NOTE | 2022-10-18 21:15 | NUR ---
patient attempted to get out of bed, but patient was able to be redirected back into bed with therapeutic communication. patient now appears to be resting with eyes closed, attached to the site monitor, and safety measures are in place.
--- NOTE | 2022-10-18 22:45 | NUR ---
Accucheck done on patient, bloog glucose result 68. ER MD made aware and received orders to open D5%-NS wide open instead of initial dose.
--- NOTE | 2022-10-19 03:15 | NUR ---
Patient appears to be resting comfortably in bed in low fowlers. Patient attached to the monitoring tech. Respirations even and unlabored with their chest wall rising. Safety measures are in place.
--- NOTE | 2022-10-19 07:14 | NUR ---
Pt report given to John IBRAHIM. Transfer of care at this time.
--- NOTE | 2022-10-19 07:30 | NUR ---
ASLEEP, AROUSABLE, REFUSES TO ENGAGE. OPENS EYES AND TURNS AWAY FROM STAFF
--- NOTE | 2022-10-19 08:30 | NUR ---
"I WANT SOME FUCKING WATER AND FOOD!" BLOOD SUGAR CHECKED, WNS. SKIN WARM AND DRY, PT ALERT X 4. WHILE REMOVING MONITOR LEADS, PT STARTS SWINGING WITH BLANKETS YELLING, "WHERE'S THE FUCKING FOOD!" PT DRESSES UP WITH CLOTHES PROVIDED, DRANK WATER AND JUICE AND LEFT WITH FOOD AND RESOURCE PACKET PROVIDED. ALLOWED ANOTHER STAFF TO REMOVE IV
[2022-10-19 09:00] VITALS: BP 104/62
== END 2022-10-19 09:00 | disposition home or self-care (01) ==
LOC: MED 13:42
DX: R41.82 Altered mental status, unspecified (principal); R45.1 Restlessness and agitation; E86.0 Dehydration; E87.6 Hypokalemia; F19.120 Other psychoactive substance abuse with intoxication, uncomplicated; J44.9 Chronic obstructive pulmonary disease, unspecified; Z79.899 Other long term (current) drug therapy
CPT/HCPCS: 36415; 70450; 80053; 80305; 81001; 82550; 82553; 84484; 85025; 96361; 96365; 96372; 96375; 99291; G0480; G0482; J1200; J1630; J2060; J3480; J7030